=== PATIENT | female | born 1940 | race Caucasian/White ===

== ENCOUNTER 2018-02-21 09:20 | Observation (INO) ==
[~2018-02-21 09:20] MED LIST: Gelatin Size 100 Topical Foam ONE; Thrombin Topical Soln 5,000 UNIT Vial TOPICAL ONE; ceFAZolin 1 GM Premix Inj 2 GM/100 ML FROZ.PIGGY IV.SIG ONE
[2018-02-21] MEDS ORDERED: Sodium Chlor 0.9% Inj 500 ML IV.CONT ONE (09:45)
[2018-02-21] MEDS ORDERED: Chlorhexidine Gluconate 2% 1 Pack (2 Cloths) TOPICAL ONE (09:45)
[2018-02-21] MEDS ORDERED: Metoprolol Tartrate 25 MG Tablet PO ONE (09:45)
[2018-02-21] MEDS ORDERED: Vancomycin Inj 1,000 MG in Sodium Chlor 0.9% Inj 250 ML IV.SIG SCH (10:00)
[2018-02-21] MEDS: Sod Chloride 0.9% Inj 1,000 ML IV.SIG SCH (10:27)
[2018-02-21 10:38] LABS: Bacteria,Urine Rare /hpf; Bilirubin,Urine Negative (Negative); Clarity,Urine Cloudy (Clear); Color,Urine Amber (Yellw/Straw); Glucose,Urine (UA) Negative (Negative); Hyaline Casts,Urine 5 /lpf (0-3); Leukocyte Esterase,Urine Trace (Negative); Mucus,Urine Few /lpf (Occasional); Nitrite,Urine Negative (Negative); Specific Gravity,Urine 1.023 (1.002-1.035); Squamous Epithelial Cell,Urine 4 /hpf (0-5)
[2018-02-21] MEDS ORDERED: fentaNYL Citrate Inj 250 MCG/5 ML Ampul ONE (12:09)
[2018-02-21] MEDS ORDERED: Propofol Inj 500 MG/50 ML Vial ONE (12:09)
[2018-02-21] MEDS ORDERED: Bisacodyl 10 MG Supp RECTAL PRN (16:06)
[2018-02-21] MEDS ORDERED: Morphine Sulfate Inj 2 MG/ML Vial IV.PUSH PRN (16:06)
[2018-02-21] MEDS ORDERED: *morphine SULFATE 4 MG/ML PERIprocedure ONLY ONE ×3 (17:17→17:40)
--- NOTE | 2018-02-21 17:29 | P.OP ---
Preoperative Diagnosis: cervical degenerative disk disease with spinal stenosis Postoperative Diagnosis: cervical degenerative disk disease with spinal stenosis Date of procedure: 02/21/18 Procedure: C6-7, C3-4 cervical discectomy, interbody arthodhesis using PEEK cage filled with autologous bone graft, Simplicity plate and screws. Anesthesia: JOVANA Surgeon: Cory Styles MD Process Project Engineer: Mally Salazar Pathology: none sent Operation and Findings: INDICATIONS FOR THE PROCEDURE Ms Myers is a 77 year-old female who had history of a prior C4-5, C5-6 cervical fusion and she has developed severe adjacent level degeneration with stenosis. She presented with intractable neck pain and clinical evidence of upper extremity C4 and C7 radiculopathy, and mass effect on the anterior spinal cord. She has failed maximum nonsurgical management including multiple modalities of conservative treatment. A surgical decompression and arthrodhesis were indicated. The [id number] details of the procedure, indications, alternatives, risks and potential complications were fully discussed with the patient. The patient fully understood. All The questions were answered. No guarantees were given. The patient voiced requesting the procedure and provided informed consents. The patient was offered the alternative of delaying the procedure and continuing with nonsurgical management. DETAILS OF THE SURGICAL PROCEDURE After the induction of general anesthesia, endotracheal intubation was performed. A Keene catheter, bilateral CATHERINE hose, and sequential compression devices were placed and kept throughout the procedure. Placement of electrodes for neurophysiological monitoring of the somatosensorial evoked potentials. motor evoked potentials, and EMG as well as laryngeal nerve monitoring was achieved. The patient was positioned supine on a Oliver table with the head over a gel doughnut. All pressure points were carefully padded with eggcrate mattress. The eyes were tapped shut after ointment was applied by the anesthesiologist to prevent corneal abrasion. A Placido hugger was placed over the exposed lower body to maintain control of the core body temperature. The electrophysiological team placed the needles and electrodes in their proper location and baseline SSEP's and motor evoked potentials were registered. The anterior cervical region was prepped and draped in the usual sterile fashion. A localizing x-ray was performed with a C-arm. The surgical procedure was performed in several steps as follow: SURGICAL APPROACH at C6-7 A skin incision was made along the inferior cervical crease with a #10 blade. The dissection was carried out through the platysma exposing the sternocleidomastoid muscle. The cervical spine was approached following the fascial layers of the neck just medial to the anterior border of the sternocleidomastoid and carotid sheath by a combination of sharp and dull dissection. The tissues were abnormal and scarred, related to the previous surgery. The omohyoid muscle was identified and carefully dissected laterally and the deep cervical fascia was carefully opened. The longus colli muscles were retracted to each side of the midline. The plate at C5=C6 was exposed. Initially the locking screws were losened, and then the screws were removed. The plate was dissected from the surrounding tissues and carefully elevated with a ligament dissector. A marker was placed at the disc space C6-7 and a cross-table lateral x-ray performed with a C-arm. SURGICAL DECOMPRESSION at C6-7 In order to decompress the anterior surface of the spinal cord it was necessary to preform a microsurgical resection of the disk at C6-7. At this point in the procedure ethe operating microscope was draped in the usual sterile fashion and brought to the field. The rest of the surgical procedure was performed using microdissection technique with the exception of the closure. Under the operative microscopic, a self-retaining retractor was placed underneath the longus colli muscle. An anterior osteophitic spurr was removed with the Leksell. The annulus at C6-7 was incised with a #15 blade and microdiscectomy was then carefully carried out using angled curets and pituitary forceps. The disk was completely damaged. There was a large disk herniation with an extruded right foraminal fragment which was producing mass effect on the exiting C7 nerve root. The posterior longitudinal ligament was then elevated with an angled curet and incised with a 15 bladed knife. A careful resection of the posterior longitudinal ligament was carried out using a thin footplate 2 mm Kerrison. A nerve hook was used to assess the epidural space behind the vertebral bodies C6 and C7 in search for residual disk fragments. The margins of the posterior endplates at C6 and C7 were carefully drilled and undercut with a TPS drill under high magnification. The decompression was then carried out laterally, and a bilateral foraminotomy was performed with a 2mm thin foot Kerrison. Then the vertebral bodies above and below the disk space were undercut using a 2 mm thin foot Kerrison. The epidural space was the systematically assessed with a nerve hook in search for disk. An excellent decompression was achieved in both, the dural sac and bilateral exiting nerve roots. The incision was then irrigated with a large amount of antibiotic solution INTERBODY ARTHRODHESIS at C6-7 In order to avoid collapse of the disk space which would result in bilateral foraminal stenosis, and to increase the chances of a successful fusion, it was necessary to place an interbody cage filled with autologous bone. At this point of the procedure, the superior and inferior endplates were then evenly decorticated with a TPS drill. The use of a drill in combination with a curette allowed me to systematically remove the cartilaginous endplates, exposing healthy bone for the interbody arthrodesis. Fourteen millimeters distraction pins were then placed at the vertebral bodies adjacent to the disk space, and gentle distraction was applied. The size of the interbody cage was then assessed using different size spacers, and a rasp was used to ensure no residual cartilage. A 7mm PEEK cage was selected, and the interbody arthrodesis was then preformed by carefully impacting a PEEK cage filled with autologous bone graft obtained from the bone fragments at the disk space C5-6. An excellent position of the cage was achieved. This was was confirmed anatomically by assessing the space posterior to the implant and distance to the anterior surface of the dural sac. Radiological confirmation of the position was performed with a cross lateral xray performed with the C-arm. INTERNAL INSTRUMENTAL FIXATION at C6-7 Once that the interbody device was in an appropriate position at C6-7, it was necessary to stabilize the spine with anterior instrumentation. Anterior instrumentation has demonstrated to increase the rate of fusion, accelerate the patient's recovery, and decrease the rate of failed interbody grafts. At this point of the procedure, the distance between the vertebral bodies was carefully measures, and a Cervical plate was brought to the field and presented in front of the vertebral bodies C5 and C6. [employer] Program Coordinator holes were then drilled using the TPS drill, and the plate was then secured to the spine using self-drilling, self- tapping screws. Initially, the inferior right screw was inserted, followed by placement of the contralateral upper screw. The remaining screws were sequentially placed in a contra-lateral fashion. A proper purchase was achieved with all screws and the position of the cage, plate and screws, and alignment of the spine was assessed anatomically by direct visualization, and radiologically by performing a cross lateral xray of the cervical spine with the C-arm. CLOSURE The incision was irrigated with several liters of antibiotic solution. Hemostasis was achieved with a bipolar. The screws were locked to prevent backing out. A 7 mm Oliver-Williamson drain was left in the prevertebral space and externalized through a separate stab incision. The incision was then closed in layers. 3-0 Vicryl with interrupted sutures was used to close the platysma and subcutaneous tissue. The skin was closed with 4-0 running subcuticular Vicryl and Dermabond was applied. The drain was secured with a 3-0 nylon. SURGICAL APPROACH to C3-4 A skin incision was made along the superior cervical crease with a #10 blade. The dissection was carried out through the platysma exposing the sternocleidomastoid muscle. The cervical spine was approached following the fascial layers of the neck just medial to the anterior border of the sternocleidomastoid and carotid sheath by a combination of sharp and dull dissection. The tissues were severely abnormal and scarred, related to the previous radiation therapy to the neck. The omohyoid muscle was identified and carefully dissected laterally and the deep cervical fascia was carefully opened. The longus colli muscles were retracted to each side of the midline. An anterior osteophytic spur was removed. A marker was placed at the disc space C3-4 and a cross-table lateral x-ray performed with a C-arm. SURGICAL DECOMPRESSION TO C3-4 Under the operative microscopic, a self-retaining retractor was placed underneath the longus colli muscle. The annulus was incised with a #15 blade and a microdiscectomy was then carefully carried out using angled curets and pituitary forceps. There was a osteophitic/disk complex, which was producing severe mass effect and compression of the spinal cord. The posterior longitudinal ligament was then elevated with an angled curet and incised with a 15 bladed knife. A careful resection of the posterior longitudinal ligament was carried out using a thin footplate 2 mm Kerrison.A nerve hook was used to assess the epidural space behind the vertebral bodies C3 and C4 in search for residual disk fragments. The margins of the posterior endplates at C3 and C4 were carefully drilled and undercut with a TPS drill under high magnification. The decompression was then carried out laterally, and a bilateral foraminotomy was performed with a 2mm thin foot Kerrison. Then the vertebral bodies above and below the disk space were undercut using a 2 mm thin foot Kerrison. The epidural space was the systematically assessed with a nerve hook in search for disk fragments. An excellent decompression was achieved in both, the dural sac and bilateral exiting nerve roots. The incision was then irrigated with a large amount of antibiotic solution INTERBODY ARTHRODHESIS at C3-4 At this point of the procedure, the superior and inferior endplates were then evenly decorticated with a TPS drill. The use of a drill in combination with a curette allowed me to systematically remove the cartilaginous endplates, exposing healthy bone for the interbody arthrodesis. forteen millimeters distraction pins were then placed at the vertebral bodies adjacent to the disk space, and gentle distraction was applied. The size of the interbody cage was then assessed using different size spacers, and a rasp was used to ensure no residual cartilage. A PEEK cage of the appropriate size was selected, and the interbody arthrodesis was then preformed by carefully impacting a PEEK cage filled with autologous bone graft to the disc space C3-4. An excellent position of the cage was achieved. This was was confirmed anatomically by feeling the space posterior to the implant and distance to the anterior surface of the dural sac. Radiological confirmation of the position was performed with a cross lateral xray performed with the C-arm. INTERNAL INSTRUMENTAL FIXATION AT C3-4 Once that the interbody device was in an appropriate position, it was necessary to stabilize the spine with anterior instrumentation. Anterior instrumentation has demonstrated to increase the rate of fusion, accelerate the patient's recovery, and decrease the rate of failed interbody grafts. At this point of the procedure, the distance between the vertebral bodies was carefully measures , and a Simplicity plate was brought to the field and presented in front of the vertebral bodies C3 C4. [employer] Program Coordinator holes were then drilled using the TPS drill, and the plate was then secured to the spine using self-drilling, self-tapping screws. Initially, the inferior right screw was inserted, followed by placement of the contralateral upper screw. The remanding screws were sequentially placed in a contra-lateral fashion. A proper purchase was achieved with all screws and the position of the cage, plate and screws, and alignment of the spine was assessed anatomically by direct visualization, and radiologically by performing a cross lateral xray of the cervical spine with the C-arm. CLOSURE The incision was irrigated with several liters of antibiotic solution. Hemostasis was achieved with a bipolar. The screws were locked to prevent backing out. A 7 mm Oliver-Williamson drain was left in the prevertebral space and externalized through a separate stab incision. The incision was then closed in layers. 3-0 Vicryl with interrupted sutures was used to close the platysma and subcutaneous tissue. The skin was closed with 4-0 running subcuticular Vicryl and Dermabond was applied. The drain was secured with a 3-0 nylon. At the end of the procedure the sponge, needle and instrument counts were all correct. The estimated blood loss was less than 80 cc. No blood transfusion was given. No intraoperative complications occurred. The patient received prophylactic antibiotics. The patient was then extubated and transferred to the recovery room in stable condition.
--- NOTE | 2018-02-21 17:54 | XR ---
EXAM DATE: 02/21/2018 5:36 PM EST AGE/SEX: 77 years / Female INDICATIONS: Cervical fusion. C3-4 and C6-7. CLINICAL DATA: This is the patient's initial encounter. Patient reports that signs and symptoms have been present for 1 day and indicates a pain score of Nonresponsive. MEDICAL/SURGICAL HISTORY: . . Previous cervical fusion, C4-5. COMPARISON: [facility], MR CERVICAL SPINE W & W/O CON, 01/31/2018. . FINDINGS: Postsurgical changes are noted following anterior cervical fusion at C3-4. There is an anterior fusio n plate and a vertebral body cage. A pre-existing anterior fusion plate is identified at C6-7. The C4-C5 vertebral bodies are fused. CONCLUSION: Status post anterior cervical fusion at C3-4. Electronically signed by: Zuhair Arreaga MD 02/21/2018 5:53 PM EST
[2018-02-21] MEDS: ceFAZolin 2 GM Premix Inj 2 GM/50 ML PIGGYBACK IV.SIG SCH (18:37)
[2018-02-21] MEDS: Senna/Docusate Sodium 8.6/50 MG Tablet PO SCH (22:32)
[2018-02-21] MEDS: Nitrofurantoin Monohydrate-Macrocrystal 100 MG Capsule PO SCH (22:32)
[2018-02-22] MEDS: ceFAZolin 2 GM Premix Inj 2 GM/50 ML PIGGYBACK IV.SIG SCH ×2 (01:11→11:56)
[2018-02-22] MEDS ORDERED: Non-Formulary Drug (Omega 3-Dha-Epa-Fish Oil [Fish Oil] 1 CAP) PO SCH (09:00)
[2018-02-22] MEDS: Lisinopril 20 MG Tablet PO SCH (09:22)
[2018-02-22] MEDS: Senna/Docusate Sodium 8.6/50 MG Tablet PO SCH ×2 (09:23→23:17)
[2018-02-22] MEDS: Nitrofurantoin Monohydrate-Macrocrystal 100 MG Capsule PO SCH ×2 (09:25→23:14)
--- NOTE | 2018-02-22 11:46 | P.PNNS ---
Subjective Interval history: Pt s/p C6-7, C3-4 cervical discectomy, interbody arthrodesis using PEEK cage filled with autologous bone graft, Simplicity plate and screws. Pt complains of post op nausea. She states she is not able to eat anything. She has some discomfort in the left scapula area but not like it was preop and she is pleased with that. She denies any radiculopathy or paresthesias in the UEs. Physical Exam Vital signs: Vital Signs 02/21/18 17:11 02/21/18 17:15 02/21/18 17:30 Temperature 98.4 F Pulse Rate 97 H 96 H 91 H Respiratory Rate 17 22 14 Blood Pressure 168/81 H 160/76 H 156/70 H Pulse Oximetry 94 L 94 L 93 L 02/21/18 17:45 02/21/18 18:00 02/21/18 18:15 Temperature Pulse Rate 90 90 88 Respiratory Rate 12 13 15 Blood Pressure 149/70 H 147/71 H 139/67 Pulse Oximetry 94 L 94 L 94 L 02/21/18 18:30 02/21/18 19:00 02/21/18 20:00 Temperature 97.7 F 97.3 F L Pulse Rate 89 88 89 Respiratory Rate 20 20 18 Blood Pressure 150/75 H 150/77 H 145/74 H Pulse Oximetry 95 95 93 L 02/22/18 00:00 02/22/18 04:00 02/22/18 08:00 Temperature 98.6 F 97.9 F 97.4 F L Pulse Rate 91 H 87 85 Respiratory Rate 18 18 16 Blood Pressure 144/75 H 153/79 H 166/83 H Pulse Oximetry 94 L 92 L 96 Intake & Output 02/21/18 02/22/18 02/22/18 18:59 06:59 18:59 Intake Total 900 / 900 1060 / 1060 Output Total 170 / 170 335 / 335 Balance 730 / 730 725 / 725 Weight 72.6 kg Intake: IV 100 / 100 1000 / 1000 NS + KCl 20 mEq Inj 1,000 ML @ 900 / 900 100 mls/hr IV.CONT .Q10H [facility]OS Rx #:[id number] Ancef 1 GM Premix Inj 2 gm In 100 / 100 100 ml @ 0 mls/hr IV.SIG .STK- MED ONE Rx#:[id number] Ancef 2 GM Premix Inj 2 gm In 100 / 100 50 ml @ 100 mls/hr IV.SIG Q8H [facility]OS Rx#:[id number] Oral 60 / 60 Anesthesia Amount 800 / 800 Output: Estimated Blood Loss 50 / 50 Urine Amount (Catheter) 120 / 120 250 / 250 Indwelling Urethral Catheter 120 / 120 250 / 250 Wound Drainage 85 / 85 # 1 Neck RADHA Drain Other: # Voids 1 Date of Last Bowel Movement 02/21/18 Weight On Admission 72.6 kg - Constitutional no acute distress (but feels nauseated.) - Routine HEENT Exam Head: Present: normocephalic Eye: Present: PERRL - Routine Neck Exam Comments: Incision soft. No palpable hematoma. - Routine Respiratory Exam Present: CTA bilaterally. Absent: respiratory distress, rhonchi, wheezes - Routine Cardiovascular Exam Present: RRR, S1, S2. Absent: murmur - Routine Abdominal Exam Present: soft, normoactive bowel sounds. Absent: distended, firm - Routine Skin Exam Absent: cyanosis, erythema - Routine Neurological Exam Present: alert, moving all extremities, normal speech. Absent: sensory deficit , motor deficit, altered mental status - Routine Psychiatric Exam Present: normal affect - Urinary Catheter Management Indwelling Urethral Catheter Cath placed during this visit: yes Reason for continuing: Hourly intake/output Insertion date: 02/21/18 Insertion time: 13:00 Assessment and Plan - Plan A: 77y/o FM s/p C6-7, C3-4 cervical discectomy, interbody arthodhesis using PEEK cage filled with autologous bone graft, Simplicity plate and screws. P: Continue with pain control Continue with antiemetics Continue to get oob and ambulate with assistance.
--- NOTE | 2018-02-22 16:21 | P.CONIM ---
History of Present Illness Service: [facility] Reason for Consult: Medical management Primary Care Provider: Tova Cano MD Chief Complaint: Medical management History of Present Illness: 77 Y/O female with a medical history significant for hypertension, hyperlipidemia, cervical spinal stenosis admitted to the Neurosurgery service for ACDF. Hospitalist service consulted for medical management. History reviewed with the patient, she reports that her neck pain was so severe she got to the point where she could barely get out of bed. Patient is seen post op in her room. She report nausea today but no vomiting. Pain is controlled. HTN has been controlled on her current home medications. She denies abdominal pain. No focal weakness. Review of Systems All other systems reviewed negative except as stated in HPI [facility] - History History Provided By: Patient - Medical History Medical History: Medical History (Last Reviewed 02/22/18 @ 22:00 by Indra Germain MD) GERD (gastroesophageal reflux disease) H/O: hysterectomy History of ESBL Klebsiella pneumoniae infection Onset Date: ~02/13/18 History of anesthesia reaction Hx of uterine prolapse Hypertension UTI (urinary tract infection) Wears dentures - Surgical History Surgical History: Surgical History (Last Reviewed 02/22/18 @ 22:00 by Indra Germain MD) H/O neck surgery Hx of cataract surgery - Family History Family History: Family History (Last Updated 02/22/18 @ 22:01 by Indra Germain MD) Other Family history non-contributory - Social History I have reviewed the patient's Social History: Yes - Tobacco History Second Hand Smoke Exposure: No Tobacco Use In Past 30 Days: No Smoking Status: Never smoker - Alcohol History How Often Do You Have a Drink Containing Alcohol: Monthly or less - Substance Use History Substance History: No History of Abuse Medications and Allergies Active Medications: Active Medications Hydrocodone Bitart/Acetaminophen ([place] 10/325) 2 tab PO Q4H PRN PRN Reason: PAIN SCALE 6 TO 10 Al Hydroxide/Mg Hydroxide (Milk Of Magnesia Liq) 30 ml PO Q12H PRN PRN Reason: Mild Constipation Albuterol (Albuterol Neb (Prn)) 2.5 mg NEB Q4HR NEB PRN PRN Reason: WHEEZING Atorvastatin Calcium (Lipitor) 10 mg PO DAILY [facility] Last Admin: 02/22/18 09:23 Dose: 10 mg Bisacodyl (Dulcolax Supp) 10 mg RECTAL DAILY PRN PRN Reason: SEVERE CONSITIPATION Dexamethasone Sodium Phosphate (Decadron Inj) 4 mg IV.PUSH Q6H [facility] Last Admin: 02/22/18 15:08 Dose: 4 mg Sodium Chloride (Ns Inj) 1,000 mls @ 30 mls/hr IV.SIG .Q24H [facility] Last Admin: 02/21/18 10:27 Dose: Not Given Vancomycin HCl 1,000 mg/ (Sodium Chloride) 250 mls @ 250 mls/hr IV.SIG [employer] [facility] Stop: 02/24/18 09:59 Last Admin: 02/21/18 12:42 Dose: 250 mls/hr Potassium Chloride/Sodium Chloride (Ns + Kcl 20 Meq Inj) 1,000 mls @ 100 mls/ hr IV.CONT .Q10H [facility] Last Admin: 02/22/18 03:38 Dose: 100 mls/hr Lactulose (Lactulose Liq) 30 ml PO DAILY PRN PRN Reason: SEVERE CONSITIPATION Lisinopril (Prinivil) 20 mg PO DAILY [facility] Last Admin: 02/22/18 09:22 Dose: 20 mg Miscellaneous Information ([facility] Nursing Information) 1 each OTHER UNSCH PRN PRN Reason: SEE LABEL COMMENTS Stop: 02/22/18 17:29 Morphine Sulfate (Morphine Inj) 2 mg IV.PUSH Q2H PRN PRN Reason: Pain Scale 1 to 6 Last Admin: 02/22/18 03:45 Dose: 2 mg Nitrofurantoin Macrocrystals (Macrobid) 100 mg PO BID [facility] Last Admin: 02/22/18 09:25 Dose: Not Given Ondansetron HCl (Zofran Inj) 4 mg IV.PUSH Q6H PRN PRN Reason: NAUSEA Last Admin: 02/22/18 15:18 Dose: 4 mg Pantoprazole Sodium (Protonix) 40 mg PO DAILY [facility] Last Admin: 02/22/18 09:21 Dose: 40 mg Senna/Docusate Sodium (Yahaira-Colace) 1 tab PO BID [facility] Last Admin: 02/22/18 09:23 Dose: 1 tab Sennosides (Senokot) 17.2 mg PO Q12H PRN PRN Reason: Moderate Constipation Allergies Allergy/AdvReac Type Severity Reaction Status Date / Time Sulfa (Sulfonamide Allergy Unknown Rash Verified 02/13/18 13:17 Antibiotics) Home Medications Medication Instructions Recorded Confirmed Type atorvastatin 10 mg PO DAILY 01/31/18 02/21/18 History lisinopril 20 mg PO DAILY 01/31/18 02/21/18 History omega 9-kay-hki-fish oil [Fish Oil] 1 cap PO DAILY 01/31/18 02/13/18 History hydrocodone-acetaminophen 1 tab PO Q4-6H PRN 02/13/18 02/21/18 History nitrofurantoin monohyd/m-cryst 100 mg PO BID 02/21/18 02/21/18 History [Macrobid] Exam Vital signs: Vital Signs 02/21/18 17:11 02/21/18 17:15 02/21/18 17:30 Temperature 98.4 F Pulse Rate 97 H 96 H 91 H Respiratory Rate 17 22 14 Blood Pressure 168/81 H 160/76 H 156/70 H Pulse Oximetry 94 L 94 L 93 L 02/21/18 17:45 02/21/18 18:00 02/21/18 18:15 Temperature Pulse Rate 90 90 88 Respiratory Rate 12 13 15 Blood Pressure 149/70 H 147/71 H 139/67 Pulse Oximetry 94 L 94 L 94 L 02/21/18 18:30 02/21/18 19:00 02/21/18 20:00 Temperature 97.7 F 97.3 F L Pulse Rate 89 88 89 Respiratory Rate 20 20 18 Blood Pressure 150/75 H 150/77 H 145/74 H Pulse Oximetry 95 95 93 L 02/22/18 00:00 02/22/18 04:00 02/22/18 08:00 Temperature 98.6 F 97.9 F 97.4 F L Pulse Rate 91 H 87 85 Respiratory Rate 18 18 16 Blood Pressure 144/75 H 153/79 H 166/83 H Pulse Oximetry 94 L 92 L 96 02/22/18 12:00 Temperature 97.3 F L Pulse Rate 83 Respiratory Rate 16 Blood Pressure 171/86 H Pulse Oximetry 96 Intake & Output 02/21/18 02/22/18 02/22/18 18:59 06:59 18:59 Intake Total 900 / 900 1060 / 1060 Output Total 170 / 170 335 / 335 Balance 730 / 730 725 / 725 Weight 72.6 kg Intake: IV 100 / 100 1000 / 1000 NS + KCl 20 mEq Inj 1,000 ML @ 900 / 900 100 mls/hr IV.CONT .Q10H [facility] Rx #:[id number] Ancef 1 GM Premix Inj 2 gm In 100 / 100 100 ml @ 0 mls/hr IV.SIG .STK- MED ONE Rx#:[id number] Ancef 2 GM Premix Inj 2 gm In 100 / 100 50 ml @ 100 mls/hr IV.SIG Q8H [facility] Rx#:[id number] Oral 60 / 60 Anesthesia Amount 800 / 800 Output: Estimated Blood Loss 50 / 50 Urine Amount (Catheter) 120 / 120 250 / 250 Indwelling Urethral Catheter 120 / 120 250 / 250 Wound Drainage / # 1 Neck RADHA Drain Other: # Voids 1 Date of Last Bowel Movement 02/21/18 Weight On Admission 72.6 kg Narrative: GENERAL: Elderly female in no acute distress HEENT: Cervical collar in place. Dressing on anterior neck appear clean and intact. SKIN: Warm and dry. EYES: No scleral icterus. No injection or drainage. NECK: Supple, trachea midline. No JVD or lymphadenopathy. CARDIOVASCULAR: Regular rate and rhythm without murmurs, gallops, or rubs. RESPIRATORY: Breath sounds equal bilaterally. No accessory muscle use. GASTROINTESTINAL: Abdomen soft, non-tender, nondistended. MUSCULOSKELETAL: No cyanosis, or edema. Neuro: No focal weakness. Can move all extremities spontaneously. Results - Imaging Impressions Cervical Spine X-Ray 02/21/18 00:00 CONCLUSION: Status post anterior cervical fusion at C3-4. Assessment and Plan - Plan 77 Y/O female admitted for ACDF. Patient is status post C6-7, C3-4 cervical discectomy, interbody arthrodesis using PEEK cage filled with autologous bone graft, Simplicity plate and screws. S/P ACDF: - Management per neurosurgery - Pain control, Decadron - PT Nausea: - Continue antiemetics. Could be secondary to pain medications. Switch to Percocet as it usually has less GI side effects - Keep Morphine as needed for breakthrough. - Bowel regimen. HTN: Continue home dose antihypertensive. Lisinopril Hyperlipidemia: - Continue statin Discussed Condition With: Patient and at bedside. All questions answered.
[2018-02-22] MEDS ORDERED: oxyCODONE/Acetaminophen 10/325 Tablet PO PRN (16:23)
[2018-02-22] MEDS: Sod Chloride 0.9% Inj 1,000 ML IV.SIG SCH (23:10)
[2018-02-23] MEDS: Senna/Docusate Sodium 8.6/50 MG Tablet PO SCH (08:31)
[2018-02-23] MEDS: Lisinopril 20 MG Tablet PO SCH (08:31)
[2018-02-23] MEDS: Nitrofurantoin Monohydrate-Macrocrystal 100 MG Capsule PO SCH (08:32)
[2018-02-23] MEDS: Sod Chloride 0.9% Inj 1,000 ML IV.SIG SCH (10:34)
--- NOTE | 2018-02-23 16:52 | P.PNIM ---
Subjective Interval history: Late entry. Patient seen around 11 AM. She reports she is feeling much better today. Tolerating her diet. Nausea resolved. Pain is controlled. Physical Exam Vital signs: Vital Signs 02/22/18 20:00 02/23/18 00:00 02/23/18 04:00 Temperature 98.1 F 97.7 F 97.7 F Pulse Rate 88 80 83 Respiratory Rate 18 18 18 Blood Pressure 159/90 H 145/67 H 149/77 H Pulse Oximetry 94 L 95 95 02/23/18 08:00 02/23/18 12:00 Temperature 98.1 F 97.7 F Pulse Rate 97 H 107 H Respiratory Rate 18 20 Blood Pressure 121/58 L 114/55 L Pulse Oximetry 100 100 Intake & Output 02/22/18 02/23/18 02/23/18 18:59 06:59 18:59 Intake Total 1000 / 1000 1000 / 1000 Balance 1000 / 1000 1000 / 1000 Weight 79.8 kg Intake: IV 1000 / 1000 1000 / 1000 NS + KCl 20 mEq Inj 1,000 ML @ 1000 / 1000 1000 / 1000 100 mls/hr IV.CONT .Q10H [facility] Rx #:[id number] Other: # Voids 3 Date of Last Bowel Movement 02/21/18 02/21/18 Narrative: GENERAL: Elderly female in no acute distress HEENT: Cervical collar in place. Dressing on anterior neck appear clean and intact. CARDIOVASCULAR: Regular rate and rhythm without murmurs, gallops, or rubs. RESPIRATORY: Breath sounds equal bilaterally. No accessory muscle use. Neuro: No focal weakness. Can move all extremities spontaneously. - Urinary Catheter Management Indwelling Urethral Catheter Cath placed during this visit: yes Reason for continuing: Hourly intake/output Insertion date: 02/21/18 Insertion time: 13:00 Assessment and Plan - Plan 77 Y/O female admitted for ACDF. Patient is status post C6-7, C3-4 cervical discectomy, interbody arthrodesis using PEEK cage filled with autologous bone graft, Simplicity plate and screws. S/P ACDF: -Doing well postop. Management per neurosurgery - Pain control, Decadron - PT Nausea: Likely secondary to pain medication. Resolved since she was switched to Percocet. - Bowel regimen. HTN: Continue home dose antihypertensive. Lisinopril Hyperlipidemia: - Continue statin Patient is clear for discharge from a hospitalist standpoint. Discharge planning per primary.
== END 2018-02-23 15:05 | disposition home or self-care (01) ==
LOC: N05 09:20 → HSDC 09:20
PROVIDERS: ADMIT Neurological Surgery; ATTEND Neurological Surgery